=== PATIENT | male | born 1955 | race Caucasian/White ===

== ENCOUNTER 2021-02-26 14:59 | Observation (INO) | payer MEDICARE, OTHER ==
[~2021-02-26] VITALS: Ht 170.2 cm; Wt 90.8 kg
[~2021-02-26 14:59] MED LIST: ASPI-1264 PO; CLOP75TA33 PO; DILT120C10 PO; DOCU250C19 PO; FURO-150 PO; GABA-530 PO; HYDR25TA5 PO; LEVE750T PO; LOSA25TA96 PO; MULT-1074 PO; OMEP20TA5 PO; POTA20TA10 PO; ROPI2TAB29 PO; SIMV-45 PO; TRAM50TA2 PO
[2021-02-26] MEDS ORDERED: normal saline 1000ML IV soln IVB ONE (15:10)
[2021-02-26] MEDS ORDERED: aspirin 81mg tab.chew PO ONE (15:10)
[2021-02-26 15:54] LABS: BASOPHILS # (AUTO) 0.1 X10'3 (0-0.2); BASOPHILS % (AUTO) 0.5 % (0-1); EOSINOPHILS # (AUTO) 0.2 X10'3 (0-0.9); EOSINOPHILS % (AUTO) 1.7 % (0-6); HEMATOCRIT 41.3 % (42.0-52.0); HEMOGLOBIN 13.9 g/dl (14.0-17.9); LYMPHOCYTES # (AUTO) 1.9 X10'3 (1.1-4.8); LYMPHOCYTES % (AUTO) 20.5 % (21-51); MEAN CORPUSCULAR HEMOGLOBIN 28.2 PG (27.0-31.0); MEAN CORPUSCULAR HGB CONC 33.6 g/dL (33.0-36.5); MEAN CORPUSCULAR VOLUME 83.9 FL (78-98); MEAN PLATELET VOLUME 8.8 FL (7.4-10.4); MONOCYTES # (AUTO) 0.5 X10'3 (0-0.9); MONOCYTES % (AUTO) 4.8 % (2-12); NEUTROPHILS # (AUTO) 6.8 X10'3 (1.8-7.7); NEUTROPHILS % (AUTO) 72.5 % (42-75); PLATELET COUNT 141 X10'3 (140-440); RED BLOOD COUNT 4.93 X10'6 (4.70-6.10); RED CELL DISTRIBUTION WIDTH 14.1 % (11.5-14.5); WHITE BLOOD COUNT 9.4 X10'3 (4.5-11.0)
[2021-02-26 15:57] LABS: ALANINE AMINOTRANSFERASE 33 U/L (12-78); ALBUMIN 3.3 G/DL (3.4-5.0); ALBUMIN/GLOBULIN RATIO 1.1 (1.1-1.5); ALKALINE PHOSPHATASE 85 IU/L (46-116); ANION GAP 11 (8-16); ASPARTATE AMINO TRANSFERASE 17 U/L (10-37); BILIRUBIN,TOTAL 0.4 MG/DL (0.1-1.0); BLOOD UREA NITROGEN 11 MG/DL (7-18); BUN/CREATININE RATIO 10.6 (5.4-32.0); CHLORIDE 112 MMOL/L (99-107); CREATININE 1.04 MG/DL (0.60-1.10); GLUCOSE 101 MG/DL (70-104); POTASSIUM 3.7 MMOL/L (3.5-5.1); SODIUM 144 MMOL/L (135-145); TOTAL PROTEIN 6.3 G/DL (6.4-8.2); eGFR 72 ML/MIN
[2021-02-26] MEDS ORDERED: morphine 2 MG/ML inj. syringe IV PRN (17:25)
[2021-02-26] MEDS ORDERED: mag hydrox/Alum hydrox/simeth 30ml oral suspension PO PRN (17:25)
[2021-02-26] MEDS ORDERED: ondansetron/PF 4mg/2ml inj IV PRN (17:25)
[2021-02-26] MEDS ORDERED: magnesium hydroxide 30ml (MOM) UD suspension PO PRN (17:25)
[2021-02-26] MEDS ORDERED: HYDROcodone/acetaminophen 5mg/325mg tablet PO PRN (17:25)
[2021-02-26] MEDS ORDERED: nitroGLYCERIN 0.4mg SUBLingual tab SL PRN (17:25)
[2021-02-26] MEDS ORDERED: acetaminophen 325mg tablet PO PRN ×2 (17:25)
[2021-02-26] MEDS ORDERED: DABI150C PO (18:17)
[2021-02-26] MEDS ORDERED: METO50TA17 PO (18:17)
[2021-02-26] MEDS ORDERED: ZONI100C31 PO (18:17)
[2021-02-26] MEDS ORDERED: ROSU10TA2 PO (18:17)
[2021-02-26] MEDS ORDERED: ROPI2TAB7 PO (18:17)
--- NOTE | 2021-02-26 19:22 | NUR ---
INTERROGATED PACEMAKER. [employer]. 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 DR. BALLESTEROS BREAKER UNIT ASSEMBLER WHO PUT IN PACEMAKER IS DR. TOBIN
--- NOTE | 2021-02-26 19:35 | NUR ---
shelly madrid, reports that [employer] rep just called [facility] and reported no significant findinigs and that reports is faxed. fax received and dr. cavazos provided the report.
[2021-02-26] MEDS ORDERED: ROPINIRole 1mg tablet PO ONE ×2 (19:40→19:50)
[2021-02-26 20:00] VITALS: BP 147/86
[2021-02-26 22:24] VITALS: BP 147/86
[2021-02-26] MEDS: morphine 2 MG/ML inj. syringe IV PRN (22:44)
[2021-02-26 23:00] VITALS: BP 147/86
[2021-02-26 23:02] VITALS: BP 136/77
[2021-02-26 23:05] VITALS: BP 132/73
[2021-02-27] MEDS: morphine 2 MG/ML inj. syringe IV PRN (03:16)
[2021-02-27 04:00] LABS: BASOPHILS % (AUTO) 0.5 % (0-1); EOSINOPHILS # (AUTO) 0.2 X10'3 (0-0.9); HEMOGLOBIN 13.5 g/dl (14.0-17.9); LYMPHOCYTES # (AUTO) 2.3 X10'3 (1.1-4.8); LYMPHOCYTES % (AUTO) 25.5 % (21-51); MEAN CORPUSCULAR HEMOGLOBIN 27.4 PG (27.0-31.0); MEAN CORPUSCULAR HGB CONC 32.2 g/dL (33.0-36.5); MEAN PLATELET VOLUME 8.7 FL (7.4-10.4); MONOCYTES # (AUTO) 0.5 X10'3 (0-0.9); MONOCYTES % (AUTO) 5.9 % (2-12); NEUTROPHILS # (AUTO) 5.9 X10'3 (1.8-7.7); NEUTROPHILS % (AUTO) 66.1 % (42-75); PLATELET COUNT 123 X10'3 (140-440); RED BLOOD COUNT 4.94 X10'6 (4.70-6.10); RED CELL DISTRIBUTION WIDTH 14.4 % (11.5-14.5)
[2021-02-27 04:17] LABS: ALBUMIN 2.9 G/DL (3.4-5.0); ANION GAP 9 (8-16); BLOOD UREA NITROGEN 12 MG/DL (7-18); BUN/CREATININE RATIO 12.6 (5.4-32.0); CALCIUM 7.5 MG/DL (8.5-10.1); CHLORIDE 112 MMOL/L (99-107); CREATININE 0.95 MG/DL (0.60-1.10); GLUCOSE 92 MG/DL (70-104); POTASSIUM 3.6 MMOL/L (3.5-5.1); SODIUM 143 MMOL/L (135-145); TOTAL CARBON DIOXIDE 21.8 MMOL/L (24-32); eGFR 80 ML/MIN
[2021-02-27 05:44] LABS: CLARITY,URINE CLEAR (Clear); COLOR,URINE YELLOW (Yellow); GLUCOSE, URINE NEGATIVE (Neg); KETONES,URINE NEGATIVE (Neg); LEUKOCYTE ESTERASE ,URINE NEGATIVE (Neg); NITRITES, URINE NEGATIVE (Neg); OCCULT BLOOD,URINE NEGATIVE (Neg); PH,URINE 6.5 (4.8-8.0); PROTEIN,URINE NEGATIVE (Neg)
[2021-02-27 05:53] LABS: UA COLLECTION TYPE CLN CATCH MIDSTREAM
[2021-02-27 06:00] VITALS: BP 137/89
--- NOTE | 2021-02-27 06:35 | NUR ---
Patient in room PCU 3026. I have received report from LUIS ALFREDO Martin and had the opportunity to ask questions and assume patient care.
--- NOTE | 2021-02-27 07:19 | NUR ---
notified. PAGER ID: [phone] MESSAGE: RE: Rell Garcia. [id number]. Med rec not approved by hospitalist yet. Thanks. delmi. [id number].
[2021-02-27 08:00] VITALS: BP 113/69
[2021-02-27] MEDS ORDERED: multivitamins, therapeutics tablet PO SCH (08:00)
[2021-02-27] MEDS ORDERED: metoprolol tartrate 50mg tablet PO SCH (08:00)
[2021-02-27] MEDS ORDERED: aspirin 81mg tablet.DR PO SCH (08:00)
[2021-02-27] MEDS ORDERED: dabigatran 150mg capsule PO SCH (08:00)
[2021-02-27] MEDS ORDERED: gabapentin 100mg capsule PO SCH (08:00)
[2021-02-27] MEDS ORDERED: losartan 25mg tablet PO SCH (08:00)
[2021-02-27] MEDS ORDERED: zonisamide 100mg capsule PO SCH (08:00)
[2021-02-27] MEDS ORDERED: KEP500T PO (08:30)
[2021-02-27] MEDS ORDERED: levetiracetam 250mg tablet PO SCH ×2 (09:45→20:00)
[2021-02-27] MEDS ORDERED: levetiracetam 250mg tablet PO ONE (10:00)
[2021-02-27 11:00] VITALS: BP 126/78
--- NOTE | 2021-02-27 11:51 | NUR ---
Pt was stable, per md orders. IV removed with cannula intact. lunchroom monitor discontinued. His medications sent to [facility] in [place], [place]. I gave him all discharge instructions and educating him regarding his medical conditions and let him to ask me all questions he needs to ask me. All belongings gathered with pt and his daughter and I walked down with them to lobby. He was seen leaving the hospital with his daughter in a private vehicle.
--- NOTE | 2021-02-27 12:00 | NUR ---
Preceptee documentation: I have reviewed and agree with all interventions, assessments performed and documented by LUIS ALFREDO Henderson. Precepetee, Medication Administration: For this medication-pass time frame, all medication were reviewed, dispensed, administered and documented per hospital policy by LUIS ALFREDO Henderson.
[2021-02-27] MEDS ORDERED: ROPINIRole 1mg tablet PO SCH (13:00)
[2021-02-27] MEDS ORDERED: atorvastatin 20mg tablet PO SCH (21:00)
[2021-02-27] MEDS ORDERED: docusate sod 250mg capsule PO SCH (21:00)
--- NOTE | 2021-03-03 15:06 | NUR ---
Case Management DC follow-up: Spoke w/pt via telephone. s/p: CP, syncopal episode, inclear etiology Pt reports: "Doing so great, everybody there, the nurses, ER, the nurses on PCU, everyone was fantastic. I was well taken care of. I appreciate all of you" Denies: acute/continuous CP, new onset irregular rhythm, emergent SOB, resp distress, orthopnea, dyspnea, N/V, hematemesis, weakness, vertigo, syncopal episodes, orthostatic hypotension, MARQUIS, blurry vision TIA/Stroke/FAST, dysphagia, bladder pain, dysuria, polyuria, hematuria, retention, abd tenderness/pain/distension, hematochezia, melena, unexplained bleeding/bruising, fever, chills. Verbalizes understanding of current/new Rx increase in Keppra, and why prescribed. Continues/resumes Rx as ordered. Denies ase r/t polypharmacy/contraindications/allergies. Verbalizes compliance w/aftercare. Verbalizes understanding of s/s that warrant -/ER visit for further evaluation. Pt acknowledges need to schedule/confirm/keep all follow-up appts w/PCP, [place] [facility]. Pt establishing w/new PCP and crimp setter. Dr Lu is the crimp setter that placed the pacer. Needs met, questions/concerns addressed at DC. No further questions/concerns verbalized r/t recent hospital stay and/or DC status at this time.
== END 2021-02-27 11:31 | disposition home or self-care (01) ==
LOC: ER 14:59 → ED HOLD 17:21 → PCU 3S 22:30
PROVIDERS: ADMIT Internal Medicine; ATTEND Internal Medicine
DX: R55 Syncope and collapse (principal); I25.10 Atherosclerotic heart disease of native coronary artery without angina pectoris; I49.5 Sick sinus syndrome; E78.5 Hyperlipidemia, unspecified; K21.9 Gastro-esophageal reflux disease without esophagitis; Z79.01 Long term (current) use of anticoagulants; Z79.82 Long term (current) use of aspirin; Z86.73 Personal history of transient ischemic attack (TIA), and cerebral infarction without residual deficits; Z87.891 Personal history of nicotine dependence; Z95.0 Presence of cardiac pacemaker
CPT/HCPCS: 36415; 71045; 80048; 80053; 81003; 83735; 83880; 84484; 85025; 87081; 93005; 96374; 96376; 99285; G0378; J2270; J7030